=== PATIENT | male | born 1955 | race Caucasian/White ===

== ENCOUNTER 2016-10-08 20:24 | Inpatient (IN) | payer OTHER ==
[~2016-10-08] VITALS: Ht 175.3 cm; Wt 109.5 kg
[~2016-10-08 20:24] MED LIST: ACID REDUCER 1150 MG PO; ANDROGEL150 GM TD; ANDROGEL150 GM TP; ATARAX,VISTARIL50 MG PO; ATORVASTATIN CA10 MG PO; ATORVASTATIN CA40 MG PO; AVINZA45 MG PO; Aspirin E.C. PO; COLACE100 MG PO; CONCERTA18 MG PO; CORTEF10 MG PO; CORTEF20 M1 PO; CYMBALTA60 MG PO; DEPAKOTE ER500 MG PO; DIAZEPAM5 MG PO; DILAUDID2 MG PO; DILAUDID4 MG PO; DOCUSATE SODIU100 MG PO; DURAGESIC100 MCG TD; DURAGESIC12 MCG TD; DURAGESIC50 MCG TD; Dilaudid PO; Duragesic TD; ESCITALOPRAM OX10 MG PO; Ecotrin PO; FAMOTIDINE20 MG PO; FENTANYL1 EAC3 TD; GAS RELIEF 8080 MG PO; HYDROCORTISONE10 MG PO; IBUPROFEN800 MG PO; K-DUR20 MEQ PO; LEVAQUIN500 MG PO; LIPITOR10 MG PO; LO-DOSE ASPIRIN81 M1 PO; LOVENOX40 MG/0.4 SC; METHYLPHENIDATE10 M1 PO; METHYLPHENIDATE18 MG PO; MORPHINE SULFAT15 MG PO; MORPHINE SULFAT30 M2 PO; MORPHINE SULFAT60 MG PO; MS CONTIN,ORAMO15 M1 PO; MS CONTIN,ORAMO30 MG PO; MS CONTIN,ORAMO60 MG PO; MULTIVITAMIN1 EAC2 PO; NEURONTIN300 MG PO; OXYCONTIN20 MG PO; PERCOCET 5/31 TABLET PO; PREDNISONE10 MG PO; PREDNISONE20 MG PO; PROMETHAZINE HC25 M1 PO; PROVENTIL HFA6.7 GM IH; RITALIN10 MG PO; RITALIN20 MG PO; SENNA8.6 MG PO; STOOL SOFT-STI1 EACH PO; TRETINOIN10 MG PO; Topamax PO; VENTOLIN HFA18 GM IH; XOPENEX1.25 MG/0. IH; ZANTAC150 MG PO; ZOFRAN ODT8 MG PO; ZYPREXA5 MG PO
[2016-10-08 20:58] LABS: HEMATOCRIT 39.6 % (38.0-50.0); MCHC 35.1 G/DL (30.0-36.0); MCV 99.7 FL (86-99); MEAN PLAT.VOLUME 10.4 uM^3 (9.0-12.4); PLATELET COUNT 215 K/uL (156-360); RBC DIS.WIDTH-CV 13.8 % (11.8-14.6); RBC DIS.WIDTH-SD 48.3 % (39-53); RED BLOOD COUNT 3.97 M/uL (4.00-5.50); WHITE BLOOD COUNT 7.3 K/uL (4.1-10.2)
[2016-10-08 21:25] LABS: CHLORIDE 109 mEq/L (99-109); POTASSIUM 4.5 mEq/L (3.7-5.4); SODIUM 142 mEq/L (136-147)
[2016-10-08 21:27] LABS: GLUCOSE 99 mg/dL (70-99)
[2016-10-08 21:29] LABS: ANION GAP 13 MEQ/L (2-14)
[2016-10-08 21:30] LABS: SERUM ETHYL ALCOHOL < 10 mg/dL
[2016-10-08 21:31] LABS: GFR ESTIMATE (CALCULATED) > 59 mL/min/
[2016-10-08 21:32] LABS: UREA NITROGEN (BUN) 19 mg/dL (9-23)
[2016-10-08 21:40] LABS: ADD MIUA? YES; BILIRUBIN NEGATIVE; BLOOD NEGATIVE; COLOR YELLOW ((YELLOW)); GLUCOSE (STRIP) NEGATIVE; KETONES NEGATIVE; LEUKOCYTES NEGATIVE; NITRITE NEGATIVE; PROTEIN (STRIP) NEGATIVE; SPECIFIC GRAVITY 1.027 (1.000-1.030); UROBILINOGEN 0.2 MG/DL (0.2-1.0)
[2016-10-08 21:41] LABS: BACTERIA NONE SEEN /HPF; CRYSTALS NONE SEEN; EPITHELIAL CELLS NONE SEEN /HPF; MUCUS TRACE /LPF; RED BLOOD CELLS 0-5 /HPF (0-5); UCUL ADDED? NO; WHITE BLOOD CELLS 0-5 /HPF (0-5)
[2016-10-08 21:42] LABS: CASTS NONE SEEN /LPF
[2016-10-08 22:04] LABS: SALICYLATE < 5.0 MG/DL (15-30)
[2016-10-09 01:09] LABS: ADD MEDTOX COMMENT Y; AMPHETAMINE NEGATIVE (500 ng/mL); BARBITURATES NEGATIVE (200 ng/mL); BENZODIAZEPINES NEGATIVE (150 ng/mL); COCAINE NEGATIVE (150 ng/mL); INTERNAL CONTROLS VALID? YES; METHADONE NEGATIVE (200 ng/mL); METHAMPHETAMINE NEGATIVE (500 ng/mL); OPIATES (MORPHINE) PRESUMPTIVE POSITIVE (100 ng/mL); OXYCODONE NEGATIVE (100 ng/mL); PHENCYCLIDINE NEGATIVE (25 ng/mL); PROPOXYPHENE NEGATIVE (300 ng/mL); THC CANNABINOIDS NEGATIVE (50 ng/mL); TRICYCLIC ANTIDEPRESSANTS NEGATIVE (300 ng/mL)
[2016-10-09 02:54] LABS: OPIATES QUANTITATIVE VALUE 0 NG/ML
[2016-10-10 22:14] VITALS: BP 197/117
[2016-10-10 22:39] LABS: HEMATOCRIT 41.5 % (38.0-50.0); MCH 34.8 PG (29.0-34.0); MCHC 35.2 G/DL (30.0-36.0); MEAN PLAT.VOLUME 10.5 uM^3 (9.0-12.4); PLATELET COUNT 203 K/uL (156-360); RBC DIS.WIDTH-CV 13.7 % (11.8-14.6); RBC DIS.WIDTH-SD 48.6 % (39-53); RED BLOOD COUNT 4.19 M/uL (4.00-5.50); WHITE BLOOD COUNT 5.8 K/uL (4.1-10.2)
[2016-10-10 22:47] LABS: CHLORIDE 108 mEq/L (99-109); POTASSIUM 4.1 mEq/L (3.7-5.4); SODIUM 142 mEq/L (136-147)
[2016-10-10 22:49] LABS: GLUCOSE 90 mg/dL (70-99)
[2016-10-10 22:51] LABS: ANION GAP 11 MEQ/L (2-14); TOTAL BILIRUBIN 0.7 mg/dL (0.0-1.0)
[2016-10-10 22:53] LABS: ALKALINE PHOSPHATASE 78 IU/L (3-129); GFR ESTIMATE (CALCULATED) > 59 mL/min/
[2016-10-10 22:54] LABS: UREA NITROGEN (BUN) 19 mg/dL (9-23)
== END 2016-10-10 22:46 | DRG 885 ==
LOC: EME 20:24 → EDOF 22:20 → 1WEST 22:20
PROVIDERS: Emergency Medicine; Internal Medicine
DX: F33.9 Major depressive disorder, recurrent, unspecified (principal); R45.851 Suicidal ideations; F90.0 Attention-deficit hyperactivity disorder, predominantly inattentive type; G89.4 Chronic pain syndrome; E03.9 Hypothyroidism, unspecified; F43.9 Reaction to severe stress, unspecified; R10.31 Right lower quadrant pain
CPT/HCPCS: 74177; 80048; 80053; 81003; 83605; 84999; 85027; 85610; 85730; 87040; 90837; 97165 GO; 99281; 99285; G0480; J2270

== ENCOUNTER 2016-10-10 22:29 | Inpatient (IN) | payer OTHER ==
[2016-10-10 23:27] LABS: AMYLASE 70 IU/L (1-118)
[2016-10-10 23:35] LABS: LIPASE 24 U/L (1.0-51.0)
[2016-10-11 06:23] LABS: HEMATOCRIT 37.7 % (38.0-50.0); MCH 34.8 PG (29.0-34.0); MCHC 34.2 G/DL (30.0-36.0); MCV 101.6 FL (86-99); MEAN PLAT.VOLUME 10.6 uM^3 (9.0-12.4); PLATELET COUNT 166 K/uL (156-360); RBC DIS.WIDTH-CV 14.1 % (11.8-14.6); RBC DIS.WIDTH-SD 52.4 % (39-53); RED BLOOD COUNT 3.71 M/uL (4.00-5.50); WHITE BLOOD COUNT 4.1 K/uL (4.1-10.2)
[2016-10-11 06:48] LABS: CHLORIDE 109 MEQ/L (99-109); GFR ESTIMATE (CALCULATED) > 59 mL/min/; GLUCOSE 85 mg/dL (70-99); POTASSIUM 4.2 MEQ/L (3.7-5.4); SODIUM 141 MEQ/L (136-147); UREA NITROGEN (BUN) 17 mg/dL (9-23)
[2016-10-11 06:49] LABS: ALKALINE PHOSPHATASE 57 IU/L (3-129); ANION GAP 8 MEQ/L (2-14); SAMPLE HEMOLYSIS CHECK 0; SAMPLE ICTERIC CHECK 0; SAMPLE LIPEMIA CHECK 0; TOTAL BILIRUBIN 0.7 MG/DL (0.0-1.0)
[2016-10-11 08:03] LABS: EOSINOPHIL (%) 0.5 % (0-5); HEMATOLOGY COMMENT 1 SMEAR COMPATIBLE; IMMATURE GRANULOCYTE (%) 0.5 % (0.0-0.7); LYMPHOCYTE COUNT 1.8 K/uL (1.0-2.8); MONOCYTE COUNT 0.7 K/uL (0-0.8); NEUTROPHIL (%) 38.8 % (45-76); NEUTROPHIL COUNT 1.6 K/uL (1.8-6.4); PLAT.SUFFICIENCY ADEQUATE; USER ID TLW
[2016-10-11 08:33] LABS: INTER. NORMALIZED RATIO 1.2; PTT 28.4 (25-32)
[2016-10-11 10:00] LABS: ADD MIUA? YES; BILIRUBIN NEGATIVE; BLOOD NEGATIVE; COLOR YELLOW ((YELLOW)); GLUCOSE (STRIP) NEGATIVE; KETONES 20; LEUKOCYTES NEGATIVE; NITRITE NEGATIVE; PROTEIN (STRIP) NEGATIVE; UROBILINOGEN 0.2 MG/DL (0.2-1.0)
[2016-10-11 11:23] LABS: BACTERIA RARE /HPF; EPITHELIAL CELLS NONE SEEN /HPF; MUCUS 2+ /LPF; RED BLOOD CELLS 0-5 /HPF (0-5); UCUL ADDED? NO; WHITE BLOOD CELLS 0-5 /HPF (0-5)
[2016-10-11 15:59] VITALS: BP 192/74
[2016-10-11 17:09] VITALS: BP 146/102
== END 2016-10-11 17:15 | DRG 885 ==
LOC: 5EAST 22:29
PROVIDERS: Internal Medicine
DX: F33.2 Major depressive disorder, recurrent severe without psychotic features (principal); R45.851 Suicidal ideations; I10 Essential (primary) hypertension; K43.9 Ventral hernia without obstruction or gangrene; R10.31 Right lower quadrant pain; F43.10 Post-traumatic stress disorder, unspecified; G89.29 Other chronic pain; E03.9 Hypothyroidism, unspecified; F60.9 Personality disorder, unspecified; Z98.1 Arthrodesis status; F41.9 Anxiety disorder, unspecified; Z87.820 Personal history of traumatic brain injury; Z85.6 Personal history of leukemia
CPT/HCPCS: 80053; 81003; 82150; 82272; 83690; 85025; 85610; 85730; C9113; J1644; J2270; J7030

== ENCOUNTER 2016-10-11 13:01 | Inpatient (IN) | payer OTHER ==
[~2016-10-11] VITALS: Ht 175.3 cm; Wt 107.3 kg
[2016-10-11 18:03] VITALS: BP 137/84
[2016-10-12 07:59] VITALS: BP 130/80
[2016-10-12 16:01] VITALS: BP 133/75
[2016-10-13 07:46] VITALS: BP 114/64
[2016-10-13 15:48] VITALS: BP 154/74
[2016-10-14 07:59] VITALS: BP 152/106
[2016-10-14 15:23] VITALS: BP 164/85
[2016-10-14 18:33] VITALS: BP 135/75
[2016-10-15 07:28] VITALS: BP 121/72
[2016-10-15] MEDS ORDERED: PRAVASTATIN SOD40 MG PO (09:05)
[2016-10-15 15:38] VITALS: BP 143/85
== END 2016-10-15 17:33 | disposition home or self-care (01) | DRG 881 ==
LOC: 1WEST 13:01
DX: F32.9 Major depressive disorder, single episode, unspecified (principal); Z87.820 Personal history of traumatic brain injury; F43.10 Post-traumatic stress disorder, unspecified

== ENCOUNTER 2017-02-03 21:40 | Emergency (ER) | payer OTHER ==
[~2017-02-03] VITALS: Ht 175.3 cm; Wt 97.7 kg
[~2017-02-03 21:40] MED LIST changes: +PRAVASTATIN SOD40 MG PO
[2017-02-03 23:26] LABS: HEMATOCRIT 37.4 % (38.0-50.0); MCH 34.1 PG (29.0-34.0); MCHC 34.5 G/DL (30.0-36.0); MCV 98.9 FL (86-99); NRBC (%) 0.3 /100 WBC (0-0); PLATELET COUNT 192 K/uL (156-360); RBC DIS.WIDTH-CV 13.7 % (11.8-14.6); RBC DIS.WIDTH-SD 49.1 % (39-53); RED BLOOD COUNT 3.78 M/uL (4.00-5.50); WHITE BLOOD COUNT 5.9 K/uL (4.1-10.2)
[2017-02-03 23:35] LABS: CHLORIDE 107 mEq/L (99-109); SODIUM 139 mEq/L (136-147)
[2017-02-03 23:38] LABS: GLUCOSE 98 mg/dL (70-99)
[2017-02-03 23:39] LABS: ANION GAP 10 MEQ/L (2-14)
[2017-02-03 23:40] LABS: TOTAL BILIRUBIN 0.2 mg/dL (0.0-1.0)
[2017-02-03 23:41] LABS: SERUM ETHYL ALCOHOL < 10 mg/dL
[2017-02-03 23:42] LABS: ALKALINE PHOSPHATASE 68 IU/L (3-129); GFR ESTIMATE (CALCULATED) > 59 mL/min/
[2017-02-03 23:44] LABS: UREA NITROGEN (BUN) 17 mg/dL (9-23)
[2017-02-03 23:45] LABS: SALICYLATE < 5.0 MG/DL (15-30)
[2017-02-04 00:50] VITALS: BP 125/95
== END 2017-02-04 00:51 | disposition home or self-care (01) ==
LOC: EME 21:40
PROVIDERS: Emergency Medicine
DX: F43.11 Post-traumatic stress disorder, acute (principal); F43.12 Post-traumatic stress disorder, chronic; Z98.1 Arthrodesis status; Z88.0 Allergy status to penicillin
CPT/HCPCS: 80053; 80164; 81003; 85027; 99281; 99285; G0480

== ENCOUNTER 2017-05-17 22:52 | Emergency (ER) | payer OTHER ==
[~2017-05-17] VITALS: Ht 175.3 cm; Wt 115.2 kg
[2017-05-18] MEDS ORDERED: VALIUM5 MG PO (00:46)
[2017-05-18] MEDS ORDERED: PERCOCET 5/31 TABLET PO (00:46)
[2017-05-18 01:01] VITALS: BP 156/88
== END 2017-05-18 01:09 | disposition home or self-care (01) ==
LOC: EME 22:52 → EXP 22:52
DX: S46.911A Strain of unspecified muscle, fascia and tendon at shoulder and upper arm level, right arm, initial encounter (principal); X50.0XXA Overexertion from strenuous movement or load, initial encounter
CPT/HCPCS: 73030; 99281; 99284; J2270

== ENCOUNTER 2017-12-04 17:16 | Inpatient (IN) | payer OTHER ==
[~2017-12-04] VITALS: Ht 175.3 cm; Wt 114.6 kg
[~2017-12-04 17:16] MED LIST changes: +VALIUM5 MG PO
[2017-12-04 18:04] LABS: HEMATOCRIT 34.1 % (38.0-50.0); HEMOGLOBIN 11.7 G/DL (12.5-16.6); MCH 33.2 PG (29.0-34.0); MCHC 34.3 G/DL (30.0-36.0); MCV 96.9 FL (86-99); NRBC (%) 0.7 /100 WBC (0-0); PLATELET COUNT 160 K/uL (156-360); RBC DIS.WIDTH-CV 16.1 % (11.8-14.6); RBC DIS.WIDTH-SD 55.6 % (39-53); RED BLOOD COUNT 3.52 M/uL (4.00-5.50); WHITE BLOOD COUNT 3.1 K/uL (4.1-10.2)
[2017-12-04 18:22] LABS: CHLORIDE 105 mEq/L (99-109); POTASSIUM 3.5 mEq/L (3.7-5.4); SODIUM 139 mEq/L (136-147)
[2017-12-04 18:23] LABS: GLUCOSE 104 mg/dL (70-99)
[2017-12-04 18:27] LABS: CREATININE 1.1 mg/dL (0.6-1.3); GFR ESTIMATE (CALCULATED) > 59 mL/min/ (58.99-99999)
[2017-12-04 18:28] LABS: UREA NITROGEN (BUN) 11 mg/dL (9-23)
[2017-12-04] MEDS ORDERED: SALINE NOSE SPR45 M1 BOTH NARES (21:11)
[2017-12-04] MEDS ORDERED: VENTOLIN HFA18 GM IH (21:11)
[2017-12-05] VITALS (7 sets, daily range): BP systolic 148–193; BP diastolic 69–97
[2017-12-05 00:02] LABS: APPEARANCE CLEAR ((CLEAR)); BILIRUBIN NEGATIVE; BLOOD NEGATIVE; COLOR YELLOW ((YELLOW)); GLUCOSE (STRIP) NEGATIVE; KETONES NEGATIVE; LEUKOCYTES NEGATIVE; NITRITE NEGATIVE; PROTEIN (STRIP) NEGATIVE; SPECIFIC GRAVITY 1.024 (1.000-1.030); UCUL ADDED? NO
[2017-12-05 06:41] LABS: HEMOGLOBIN 10.7 G/DL (12.5-16.6); MCH 32.4 PG (29.0-34.0); MCHC 32.4 G/DL (30.0-36.0); PLATELET COUNT 152 K/uL (156-360); RBC DIS.WIDTH-CV 16.7 % (11.8-14.6); RBC DIS.WIDTH-SD 60.8 % (39-53)
[2017-12-05 06:46] LABS: WHITE BLOOD COUNT 1.4 K/uL (4.1-10.2)
[2017-12-05 06:57] LABS: CHLORIDE 107 MEQ/L (99-109); CREATININE 0.9 MG/DL (0.6-1.3); GFR ESTIMATE (CALCULATED) > 59 mL/min/ (58.99-99999); GLUCOSE 269 mg/dL (70-99); POTASSIUM 4.1 MEQ/L (3.7-5.4); SODIUM 137 MEQ/L (136-147); UREA NITROGEN (BUN) 12 mg/dL (9-23)
[2017-12-05 10:31] LABS: HEMOGLOBIN 10.4 G/DL (12.5-16.6); MCH 32.5 PG (29.0-34.0); MCHC 32.5 G/DL (30.0-36.0); PLATELET COUNT 155 K/uL (156-360); RBC DIS.WIDTH-CV 16.7 % (11.8-14.6); RBC DIS.WIDTH-SD 60.9 % (39-53)
[2017-12-05 10:54] LABS: ABS NEUTROPHIL COUNT 1.6; ANISOCYTOSIS 1+; ATYPICAL LYMPHOCYTE 0.9 %; BAND NEUTROPHILS 0.9 % (0-8.0); EOSINOPHIL ABS CT 0; LYMPHOCYTES 16.6 % (15.0-45.0); MONOCYTES 0.9 % (0-9.0); NUCLEATED RBC'S 0.9; OVALOCYTES 1+; PLAT.SUFFICIENCY ADEQUATE; POLYCHROMASIA 2+; SEG.NEUTROPHILS 80.7 % (46.0-76.0)
[2017-12-06 04:11] VITALS: BP 135/60
[2017-12-06 07:02] LABS: BASOPHIL (%) 0.1 % (0-1); EOSINOPHIL (%) 0 % (0-5); HEMATOCRIT 33.8 % (38.0-50.0); HEMOGLOBIN 11.1 G/DL (12.5-16.6); IMMATURE GRANULOCYTE (%) 3.8 % (0.0-0.7); LYMPHOCYTE (%) 9.1 % (15-42); LYMPHOCYTE COUNT 0.9 K/uL (1.0-2.8); MCH 32.7 PG (29.0-34.0); MCHC 32.8 G/DL (30.0-36.0); MCV 99.7 FL (86-99); MONOCYTE (%) 6.1 % (3-12); MONOCYTE COUNT 0.6 K/uL (0-0.8); NEUTROPHIL (%) 80.9 % (45-76); NEUTROPHIL COUNT 7.7 K/uL (1.8-6.4); NRBC (%) 0.3 /100 WBC (0-0); PLATELET COUNT 174 K/uL (156-360); RBC DIS.WIDTH-CV 17.2 % (11.8-14.6); RBC DIS.WIDTH-SD 62.4 % (39-53); RED BLOOD COUNT 3.39 M/uL (4.00-5.50); WHITE BLOOD COUNT 9.5 K/uL (4.1-10.2)
[2017-12-06 07:10] LABS: CHLORIDE 107 MEQ/L (99-109); CREATININE 0.8 MG/DL (0.6-1.3); GFR ESTIMATE (CALCULATED) > 59 mL/min/ (58.99-99999); GLUCOSE 163 mg/dL (70-99); POTASSIUM 3.8 MEQ/L (3.7-5.4); SODIUM 136 MEQ/L (136-147); UREA NITROGEN (BUN) 10 mg/dL (9-23)
[2017-12-06 07:43] VITALS: BP 136/67
[2017-12-06 09:38] LABS: HEMOGLOBIN A1c (GLYCOHEMOGLOB) 5.2 % (Below 5.7)
[2017-12-06 12:00] VITALS: BP 135/70
[2017-12-06 15:55] VITALS: BP 154/63
[2017-12-06 19:43] VITALS: BP 150/68
[2017-12-07 00:10] VITALS: BP 166/71
[2017-12-07 06:53] LABS: HEMATOCRIT 33.1 % (38.0-50.0); HEMOGLOBIN 10.7 G/DL (12.5-16.6); MCH 32.4 PG (29.0-34.0); MCHC 32.3 G/DL (30.0-36.0); MCV 100.3 FL (86-99); NRBC (%) 0.7 /100 WBC (0-0); PLATELET COUNT 160 K/uL (156-360); RBC DIS.WIDTH-CV 17.6 % (11.8-14.6); RBC DIS.WIDTH-SD 64.5 % (39-53); WHITE BLOOD COUNT 5.8 K/uL (4.1-10.2)
[2017-12-07 07:18] LABS: ALBUMIN 3.7 G/DL (3.2-4.8); ALKALINE PHOSPHATASE 66 IU/L (3-129); ALT (GPT) 36 IU/L (3-49); AST (GOT) 21 IU/L (2-34); CHLORIDE 107 MEQ/L (99-109); CREATININE 0.8 MG/DL (0.6-1.3); GFR ESTIMATE (CALCULATED) > 59 mL/min/ (58.99-99999); POTASSIUM 3.9 MEQ/L (3.7-5.4); SODIUM 140 MEQ/L (136-147); TOTAL BILIRUBIN 0.3 MG/DL (0.0-1.0); TOTAL PROTEIN 5.9 G/DL (6.4-8.3); UREA NITROGEN (BUN) 14 mg/dL (9-23)
[2017-12-07 07:24] LABS: ABS NEUTROPHIL COUNT 4.5; ANISOCYTOSIS 1+; ATYPICAL LYMPHOCYTE 2.6 %; EOSINOPHIL ABS CT 0; LYMPHOCYTES 13.9 % (15.0-45.0); MICROCYTOSIS 1+; MONOCYTES 4.4 % (0-9.0); MYELOCYTES 1.7 %; PLAT.SUFFICIENCY ADEQUATE; POLYCHROMASIA 2+; SEG.NEUTROPHILS 77.4 % (46.0-76.0)
[2017-12-07 07:25] LABS: GLUCOSE 120 mg/dL (70-99)
[2017-12-07 07:39] VITALS: BP 142/75
[2017-12-07 11:10] VITALS: BP 133/68
[2017-12-07 16:00] VITALS: BP 122/72
[2017-12-07 19:55] VITALS: BP 126/68
[2017-12-08] VITALS (8 sets, daily range): BP systolic 140–184; BP diastolic 79–96
[2017-12-08 06:41] LABS: HEMATOCRIT 34.4 % (38.0-50.0); HEMOGLOBIN 11.2 G/DL (12.5-16.6); MCH 32.2 PG (29.0-34.0); MCHC 32.6 G/DL (30.0-36.0); MCV 98.9 FL (86-99); NRBC (%) 0.5 /100 WBC (0-0); PLATELET COUNT 169 K/uL (156-360); RBC DIS.WIDTH-CV 17.6 % (11.8-14.6); RED BLOOD COUNT 3.48 M/uL (4.00-5.50); WHITE BLOOD COUNT 3.9 K/uL (4.1-10.2)
[2017-12-08 07:01] LABS: CHLORIDE 105 MEQ/L (99-109); POTASSIUM 3.9 MEQ/L (3.7-5.4); SODIUM 138 MEQ/L (136-147)
[2017-12-08 07:15] LABS: ABS NEUTROPHIL COUNT 3.1; ANISOCYTOSIS 1+; ATYPICAL LYMPHOCYTE 0.9 %; BAND NEUTROPHILS 0.9 % (0-8.0); EOSINOPHIL ABS CT 0; LYMPHOCYTES 12.3 % (15.0-45.0); MACROCYTES 1+; MONOCYTES 4.4 % (0-9.0); MYELOCYTES 1.7 %; PLAT.SUFFICIENCY ADEQUATE; POLYCHROMASIA 1+; SEG.NEUTROPHILS 79.8 % (46.0-76.0)
[2017-12-08 07:20] LABS: CREATININE 0.8 MG/DL (0.6-1.3); GFR ESTIMATE (CALCULATED) > 59 mL/min/ (58.99-99999); GLUCOSE 153 mg/dL (70-99); HDL CHOLESTEROL 38 MG/DL (Desirable>=40); LDL CHOLESTEROL 98 mg/dL (Desirable<100); NON-HDL CHOLESTEROL 114 mg/dL (Desirable<160); TOTAL CHOLESTEROL 152 mg/dL (Desirable<200); TRIGLYCERIDES 78 MG/DL (Normal: <150); UREA NITROGEN (BUN) 18 mg/dL (9-23)
[2017-12-09 04:00] VITALS: BP 137/70
[2017-12-09 08:10] VITALS: BP 132/69
[2017-12-09 16:03] VITALS: BP 126/65
[2017-12-09 19:39] LABS: HEMATOCRIT 36.4 % (38.0-50.0); PLATELET COUNT 175 K/uL (156-360); RBC DIS.WIDTH-CV 17.8 % (11.8-14.6); RBC DIS.WIDTH-SD 64.7 % (39-53); RED BLOOD COUNT 3.64 M/uL (4.00-5.50); WHITE BLOOD COUNT 6.2 K/uL (4.1-10.2)
[2017-12-09 19:52] LABS: FIBRINOGEN 232 mg/dL (150-450)
[2017-12-09 19:53] LABS: INTER. NORMALIZED RATIO 1.1
[2017-12-09 19:54] LABS: PTT 25.2 SEC (25-37)
[2017-12-09 19:59] LABS: ALBUMIN 3.7 G/DL (3.2-4.8); ALKALINE PHOSPHATASE 74 IU/L (3-129); ALT (GPT) 35 IU/L (3-49); AST (GOT) 29 IU/L (2-34); CHLORIDE 104 MEQ/L (99-109); GFR ESTIMATE (CALCULATED) > 59 mL/min/ (58.99-99999); POTASSIUM 4.4 MEQ/L (3.7-5.4); SODIUM 133 MEQ/L (136-147); TOTAL BILIRUBIN 0.3 MG/DL (0.0-1.0); TOTAL PROTEIN 6.7 G/DL (6.4-8.3); UREA NITROGEN (BUN) 21 mg/dL (9-23)
[2017-12-09 20:00] LABS: GLUCOSE 242 mg/dL (70-99)
[2017-12-09 20:10] LABS: ABS NEUTROPHIL COUNT 5.1; ANISOCYTOSIS 1+; ATYPICAL LYMPHOCYTE 2.7 %; BAND NEUTROPHILS 9.8 % (0-8.0); BASOPH.STIPPLING 1+; BASOPHILS 0.9 %; EOSINOPHIL ABS CT 0; HYPOCHROMASIA 1+; LYMPHOCYTES 9.8 % (15.0-45.0); MACROCYTES 1+; METAMYELOCYTES 1.8 %; MONOCYTES 1.8 % (0-9.0); MYELOCYTES 0.9 %; NUCLEATED RBC'S 0.9; PLAT.SUFFICIENCY ADEQUATE; POIKILOCYTOSIS 1+; POLYCHROMASIA 1+; SEG.NEUTROPHILS 72.3 % (46.0-76.0)
[2017-12-09 20:14] LABS: D-DIMER LATEX NEGATIVE
[2017-12-09 20:34] LABS: SCHISTOCYTES NONE SEEN
[2017-12-09 23:58] VITALS: BP 120/64
[2017-12-10 06:36] LABS: HEMOGLOBIN 11.6 G/DL (12.5-16.6); MCHC 32.2 G/DL (30.0-36.0); MCV 99.2 FL (86-99); NRBC (%) 0.8 /100 WBC (0-0); PLATELET COUNT 170 K/uL (156-360); RBC DIS.WIDTH-CV 17.3 % (11.8-14.6); RBC DIS.WIDTH-SD 63.7 % (39-53); RED BLOOD COUNT 3.63 M/uL (4.00-5.50); WHITE BLOOD COUNT 7.9 K/uL (4.1-10.2)
[2017-12-10 07:07] LABS: CHLORIDE 104 MEQ/L (99-109); CREATININE 0.8 MG/DL (0.6-1.3); GFR ESTIMATE (CALCULATED) > 59 mL/min/ (58.99-99999); SODIUM 136 MEQ/L (136-147); UREA NITROGEN (BUN) 22 mg/dL (9-23)
[2017-12-10 07:10] VITALS: BP 153/90
[2017-12-10 07:10] LABS: GLUCOSE 101 mg/dL (70-99)
[2017-12-10 07:18] LABS: ABS NEUTROPHIL COUNT 5.6; ANISOCYTOSIS 2+; ATYPICAL LYMPHOCYTE 2.7 %; BAND NEUTROPHILS 4.5 % (0-8.0); BASOPH.STIPPLING 1+; EOSINOPHIL ABS CT 0; LYMPHOCYTES 18.7 % (15.0-45.0); MACROCYTES 1+; METAMYELOCYTES 0.9 %; MICROCYTOSIS 1+; MONOCYTES 5.3 % (0-9.0); MYELOCYTES 0.9 %; NUCLEATED RBC'S 1.8; PLAT.SUFFICIENCY ADEQUATE; POLYCHROMASIA 2+
[2017-12-10] MEDS ORDERED: AMLODIPINE BESYL5 MG PO (12:05)
[2017-12-10] MEDS ORDERED: DUONEB 2.5-0.5 M3 ML AEROSOL (12:05)
[2017-12-10] MEDS ORDERED: PRAVASTATIN SOD40 MG PO (12:05)
[2017-12-10] MEDS ORDERED: ADVAIR 100/501 DISK IH (12:05)
[2017-12-10] MEDS ORDERED: PREDNISONE20 MG PO (12:05)
[2017-12-10] MEDS ORDERED: SPIRIVA RESPIMAT4 GM IH (12:05)
[2017-12-10] MEDS ORDERED: LEVOFLOXACIN750 MG PO (12:05)
[2017-12-10] MEDS ORDERED: MONTELUKAST SOD10 MG PO (12:05)
[2017-12-10] MEDS ORDERED: LISINOPRIL10 MG PO (12:05)
[2017-12-10] MEDS ORDERED: PROAIR HFA8.5 GM IH (12:11)
[2017-12-10] MEDS ORDERED: BREO ELLIPTA I1 EACH IH (14:37)
[2017-12-10] MEDS ORDERED: INCRUSE ELLI62.5 MCG IH (14:37)
== END 2017-12-10 16:04 | disposition home or self-care (01) | DRG 202 ==
LOC: EME 17:16 → 5SOUTH 21:09 → EDOF 21:09 → ENRESERV 21:12 → EDOF 12-05 00:11 → 5SOUTH 12-05 00:12 → ENPENDDIS 12-10 12:17 → 5SOUTH 12-10 16:04
PROVIDERS: Family Medicine; Hospitalist; Internal Medicine; Internal Medicine Medical Oncology
DX: J45.901 Unspecified asthma with (acute) exacerbation (principal); R73.9 Hyperglycemia, unspecified; J20.9 Acute bronchitis, unspecified; J44.1 Chronic obstructive pulmonary disease with (acute) exacerbation; D61.818 Other pancytopenia; J44.0 Chronic obstructive pulmonary disease with (acute) lower respiratory infection; C95.91 Leukemia, unspecified, in remission; F43.10 Post-traumatic stress disorder, unspecified; R09.02 Hypoxemia; Z87.820 Personal history of traumatic brain injury; E66.01 Morbid (severe) obesity due to excess calories; F32.9 Major depressive disorder, single episode, unspecified; I10 Essential (primary) hypertension; E03.9 Hypothyroidism, unspecified; Z92.21 Personal history of antineoplastic chemotherapy; Z88.5 Allergy status to narcotic agent; Z68.37 Body mass index [BMI] 37.0-37.9, adult; Z82.49 Family history of ischemic heart disease and other diseases of the circulatory system; Z88.0 Allergy status to penicillin; Z82.0 Family history of epilepsy and other diseases of the nervous system
CPT/HCPCS: 71046; 71275; 80048; 80053; 80061; 80200; 81003; 82948; 83036; 85025; 85027; 85378; 85384; 85610; 85730; 87070; 87205; 87449; 87502; 93005; 94640; 94640 76; 94644; 94760; 94799; 99202; 99281; 99285; J0360; J1650; J1815; J1956; J2920; J2930; J3260; J3475; J7030; J7040; J7050; J7512

== ENCOUNTER 2018-01-14 22:44 | Emergency (ER) | payer OTHER ==
[~2018-01-14] VITALS: Ht 175.3 cm; Wt 116.8 kg
[~2018-01-14 22:44] MED LIST changes: +ADVAIR 100/501 DISK IH; +AMLODIPINE BESYL5 MG PO; +BREO ELLIPTA I1 EACH IH; +DUONEB 2.5-0.5 M3 ML AEROSOL; +INCRUSE ELLI62.5 MCG IH; +LEVOFLOXACIN750 MG PO; +LISINOPRIL10 MG PO; +MONTELUKAST SOD10 MG PO; +PROAIR HFA8.5 GM IH; +SALINE NOSE SPR45 M1 BOTH NARES; +SPIRIVA RESPIMAT4 GM IH
[2018-01-15] MEDS ORDERED: BENADRYL50 MG PO (01:30)
[2018-01-15 02:02] VITALS: BP 130/88
== END 2018-01-15 02:03 | disposition home or self-care (01) ==
LOC: EME 22:44
DX: T78.40XA Allergy, unspecified, initial encounter (principal); J45.909 Unspecified asthma, uncomplicated; C95.91 Leukemia, unspecified, in remission; F43.10 Post-traumatic stress disorder, unspecified; Z98.890 Other specified postprocedural states; Z91.5 Personal history of self-harm; Z87.820 Personal history of traumatic brain injury; Z86.73 Personal history of transient ischemic attack (TIA), and cerebral infarction without residual deficits; Z90.49 Acquired absence of other specified parts of digestive tract; Z88.1 Allergy status to other antibiotic agents; Z88.5 Allergy status to narcotic agent; Z88.0 Allergy status to penicillin; Z88.8 Allergy status to other drugs, medicaments and biological substances
CPT/HCPCS: 99281; 99284